=== PATIENT | female | born 1970 | race Caucasian/White ===

== ENCOUNTER 2017-09-11 18:40 | Emergency (ER) | payer OTHER ==
--- NOTE | 2017-09-11 22:46 | ED Physician Chart ---
ED Chief Complaint/HPI - Patient Information Date Seen:: 09/11/17 Time Seen:: 19:40 Chief Complaint:: ETOH intoxication History of Present Illness:: 47 yo female was brought from street to ER due to ETOH intoxication. Patient was extremely combative, screaming and yelling. Patient refused treatment. Allergies:: Allergies Allergy/AdvReac Type Severity Reaction Status Date / Time No Known Allergies Allergy Verified 09/11/17 19:02 Vitals:: Vital Signs - 8 hr 09/11/17 19:03 Temp 99 F HR 92 RR 16 BP 119/74 O2 Sat % 97 ED Review of Systems - Review of Systems General/Constitutional: No fever Skin: No bruising Head: No headache Eyes: No pain ENT: No nasal drainage Neck: No neck pain Cardio Vascular: No chest pain Pulmonary: No SOB GI: No nausea, No vomiting Psychiatric: Anxiety Neurological: No focal symptoms ED Past Medical History - Past Medical History Past Medical History: No significant medical hx Social History: Smoker, Alcohol, No Drug Use Surgical History: None Family Medical History - Family Member Mother History Unknown: Yes ED Physical Exam - Physical Examination Other Gen/Cons comments:: Combative Eyes: PERRL Skin: No ecchymosis ENMT: Nasal exam nl Neck: No nuchal rigidity Respiratory: No Wheeze/Rhonchi/Rales Cardio Vascular: RRR, No murmur, gallop, rubs, NL S1 S2 GI: No tenderness/rebounding/guarding Extremities: normal strength in all extremities Neuro/Psych: Alert/oriented ED Assessment - Assessment General Assessment: Alcohol intoxication Assessment/Comments:: CBC, CMP, UA, urine drug screen (patient refused) Ativan IM Benadryl ED Septic Shock - . Is Septic Shock (SBP<90, OR Lactate>4 mmol\L) present?: No - <6hrs of presentation: Vital Signs: Vital Signs - 8 hr 09/11/17 19:03 Temp 99 F HR 92 RR 16 BP 119/74 O2 Sat % 97 ED Reassessment (Disposition) - Reassessment Reassessment:: Patient was more awake after slept one night Reassessment Condition:: Improved ED Discharge Plan - Patient Disposition Instructions: Alcohol Intoxication, [id number] Additional Instructions: Follow discharge instructions and doctors orders. If symptoms worsen follow up with your primary doctor or come back to the ED.
== END 2017-09-12 07:00 | disposition home or self-care (01) ==
LOC: ER 18:40
DX: F10.129 Alcohol abuse with intoxication, unspecified (principal); F17.200 Nicotine dependence, unspecified, uncomplicated
CPT/HCPCS: 99284; 96372 ×2; J2060; J1200; Z7502